=== PATIENT | female | born 1965 | race Caucasian/White ===

== ENCOUNTER 2016-05-24 16:03 | Emergency (ER) | payer OTHER ==
[~2016-05-24] VITALS: Ht 160 cm; Wt 77.1 kg
[~2016-05-24 16:03] MED LIST: CATAPRES0.1 M1 PO; CHLORDIAZEPOXID25 M3 PO; DIAZEPAM10 MG PO; LO LOESTRIN FE1 TAB PO; SUBOXONE 2 MG-01 FIL SL; SYNTHROID0.125 MG PO; ZOFRAN ODT4 M1 SL
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
[2016-05-24 17:31] VITALS: BP 117/56
== END 2016-05-24 17:32 ==
LOC: ERH 16:03
DX: S16.1XXA Strain of muscle, fascia and tendon at neck level, initial encounter (principal); V49.40XA Driver injured in collision with unspecified motor vehicles in traffic accident, initial encounter